=== PATIENT | male | born 1975 | race Caucasian/White ===

== ENCOUNTER 2023-12-05 16:55 | Emergency (ER) | payer SELFPAY ==
[~2023-12-05] VITALS: Ht 188 cm; Wt 74.8 kg
[2023-12-05 17:56] VITALS: PULSE 84; RESP 16; TEMP 97.4
[2023-12-05 18:14] LABS: BASOPHILS # (AUTO) 0.1 (0.0-0.1); BASOPHILS % 0.6 % (0.0-1.0); EOSINOPHILS # (AUTO) 0.1 (0.0-0.4); EOSINOPHILS % 0.9 % (0.0-6.0); HEMATOCRIT 40.5 % (38.2-49.6); HEMOGLOBIN 13.7 g/dL (14.0-18.0); LYMPHOCYTES # (AUTO) 2.1 (1.0-3.2); LYMPHOCYTES % 25.8 % (18.0-39.1); MEAN CORPUSCULAR HEMOGLOBIN 33.3 pg (28-32); MEAN CORPUSCULAR HGB CONC 33.8 g/dL (31-35); MEAN CORPUSCULAR VOLUME 98.3 fL (81-99); MONOCYTES % 12.7 % (4.4-11.3); NEUTROPHILS # (AUTO) 4.9 (2.1-6.9); NEUTROPHILS % 59.8 % (38.7-80.0); PLATELET COUNT 321 x10e3/uL (140-360); RED BLOOD COUNT 4.12 x10e6/uL (4.3-5.7); RED CELL DISTRIBUTION WIDTH 11.6 % (11.7-14.4); WHITE BLOOD COUNT 8.17 x10e3/uL (4.8-10.8)
[2023-12-05 18:32] LABS: ALBUMIN/GLOBULIN RATIO 1.3 (0.8-2.0); ANION GAP 13.5 mmol/L (8-16); BILIRUBIN,TOTAL 0.2 mg/dL (0.2-1.2); CREATININE, SERUM 0.8 mg/dL (0.72-1.25); POTASSIUM 3.5 mmol/L (3.5-5.1)
[2023-12-05 18:38] LABS: TROPONIN I 0.006 ng/mL (0-0.300)
[2023-12-05] MEDS ORDERED: Morphine 4mg INJECTION 4 MG/ML INJ IV ONE (19:45)
[2023-12-05] MEDS: KETOROLAC TROMETHAMINE 30 MG/ML VIAL IV STA (20:40)
[2023-12-05] MEDS: ONDANSETRON HCL INJ 2MG/ML 2ML 2 MG/ML VIAL IV STA (21:05)
[2023-12-05] MEDS: SODIUM CHLORIDE FLUSH 10 ML SYR IV PRN (21:06)
[2023-12-05 21:56] VITALS: BP 187/108; O2SAT 98
== END 2023-12-05 21:57 | disposition home or self-care (01) ==
LOC: ER 19:32
DX: M79.661 Pain in right lower leg (principal); M79.672 Pain in left foot; M79.671 Pain in right foot; I10 Essential (primary) hypertension
CPT/HCPCS: 36415; 71045; 80053; 84484; 85025; 93005; 93970; 99284; J1885; J2405